=== PATIENT | female | born 1995 | race Caucasian/White ===

== ENCOUNTER 2023-03-07 05:20 | Day surgery (SDC) | payer OTHER ==
[2023-03-02 13:33] VITALS: BMI 22.8
[~2023-03-07 05:20] MED LIST: BUPIVACAINE HCL/PF 0.5% (5 MG/ML) 30 ML VIAL IJ ONE
[2023-03-07] MEDS ORDERED: BUPIVACAINE HCL/PF 0.5% (5MG/ML) 10 ML VIAL ONE (08:45)
[2023-03-07] MEDS ORDERED: MIDAZOLAM HCL 2 MG/2 ML SINGLE DOSE VIAL ONE (10:13)
[2023-03-07] MEDS ORDERED: ceFAZolin SODIUM 1 GM VIAL IVPB ONE (10:50)
[2023-03-07] MEDS ORDERED: BUPIVACAINE HCL/PF 0.5% (5 MG/ML) 30 ML VIAL IJ ONE ×2 (11:11)
[2023-03-07] MEDS ORDERED: NEOSTIGMINE METHYLSULFATE 0.5 MG/1 ML - 10 ML MDV ONE (11:54)
[2023-03-07] MEDS ORDERED: GLYCOPYRROLATE 0.2 MG/1 ML VIAL ONE (11:54)
[2023-03-07] MEDS ORDERED: ONDANSETRON 4 MG/2 ML VIAL IVPUSH PRN (12:28)
[2023-03-07] MEDS ORDERED: PROMETHAZINE HCL 25 MG/1 ML VIAL IVPB PRN (12:28)
[2023-03-07] MEDS ORDERED: oxyCODONE HCL 5 MG TABLET PO PRN (12:28)
[2023-03-07] MEDS ORDERED: LACTATED RINGERS SOLUTION 1,000 ML IV SCH (12:30)
[2023-03-07] MEDS ORDERED: ONDANSETRON 4 MG/2 ML VIAL ONE (14:22)
[2023-03-07] MEDS ORDERED: oxyCODONE HCL 5 MG TABLET ONE (14:23)
[2023-03-07 19:38] VITALS: BP 100/60; PULSE 70; RESP 18; TEMP 97.8
== END 2023-03-07 18:40 | disposition home or self-care (01) ==
LOC: JASU-SURG 05:20
PROVIDERS: ATTEND Obstetrics & Gynecology
PROC: 0UB14ZZ Excision of Left Ovary, Percutaneous Endoscopic Approach (ICD-10-PCS; principal; 2023-03-07 10:00)
DX: D27.1 Benign neoplasm of left ovary (principal); R10.2 Pelvic and perineal pain
CPT/HCPCS: 86850; 86900; 86901; 88307-TC; 88342-TC; 94010; 94760

== ENCOUNTER 2024-04-22 19:30 | Inpatient (IN) | payer OTHER ==
[2024-04-22] MEDS: ELECTROLYTE-148 SOLN 1,000 ML IV SCH (20:20)
[2024-04-22 20:21] VITALS: BMI 27.1
[2024-04-22 20:33] LABS: BASO % 0.7 % (0-2.0); EOS % 0.4 % (0-4.5); HEMOGLOBIN 12.7 GM/dL (10.7-15.3); LYMPH % 24.5 % (8-40); MCH 33.4 pg (25.7-33.7); MCHC 34.3 g/dl (32.0-36.0); MEAN CELL VOLUME 97.4 fl (80-96); MEAN PLT VOLUME 8.4 fl (7.5-11.1); MONO % 8.2 % (3.8-10.2); NEUT % 66.2 % (42.8-82.8); PLATELET COUNT 214 10^3/uL (134-434); RDW 13.7 % (11.6-15.6); WHITE BLOOD COUNT 6.1 K/mm3 (4.0-10.0)
[2024-04-22 20:42] LABS: INR 0.95 (0.83-1.09); PROTHROMBIN TIME (PATIENT) 10.9 SEC (9.7-13.0)
[2024-04-22 20:45] LABS: ACTIVATED PTT 26.9 SECONDS (25.2-36.5)
[2024-04-22 20:50] LABS: POTASSIUM 4.4 mmol/L (3.5-5.1)
[2024-04-22 20:53] LABS: BLOOD UREA NITROGEN 19.6 mg/dL (7-18); CALCIUM 9.1 mg/dL (8.5-10.1)
[2024-04-22 20:55] LABS: CREATININE 0.5 mg/dL (0.55-1.3)
[2024-04-22] MEDS: DINOPROSTONE 10 MG VAGINAL SUPPOSITORY VG ONE (21:50)
[2024-04-23] MEDS ORDERED: PROMETHAZINE HCL 25 MG/1 ML VIAL ONE (05:00)
[2024-04-23] MEDS ORDERED: BUTORPHANOL TARTRATE 2 MG/ML VIAL ONE (05:00)
[2024-04-23] MEDS: PROMETHAZINE HCL 25 MG/1 ML VIAL IVPB ONE (05:10)
[2024-04-23] MEDS: BUTORPHANOL TARTRATE 1 MG/ML VIAL IVPUSH ONE (05:10)
[2024-04-23 08:16] VITALS: RESP 18
[2024-04-23] MEDS ORDERED: FENTANYL/BUPIVACAINE/NS/PF - PCEA - 50 ML DISP.SYRIN EP ONE (08:50)
[2024-04-23] MEDS ORDERED: NALOXONE HCL 0.4 MG/ML VIAL IVPUSH PRN (09:14)
[2024-04-23] MEDS: FENTANYL/BUPIVACAINE/NS/PF - PCEA - 50 ML DISP.SYRIN EP SCH (09:35)
[2024-04-23] MEDS ORDERED: OXYTOCIN 20 UNITS in 0.9% NS 20 UNIT/1,000 ML INFUS.BAG IV ONE (12:14)
[2024-04-23] MEDS ORDERED: LIDOCAINE HCL 1% PRESERVATIVE FREE - 30ML VIAL ONE (12:14)
[2024-04-23] MEDS ORDERED: OXYTOCIN 30 UNITS in 0.9% NS 30 UNIT/500 ML INFUS.BAG IVPB ONE (13:48)
[2024-04-23] MEDS ORDERED: ACETAMINOPHEN 325 MG TABLET (FP) ONE (15:16)
[2024-04-23] MEDS: ACETAMINOPHEN 325 MG TABLET (FP) PO PRN (15:20)
[2024-04-23] MEDS: OXYTOCIN 20 UNITS in 0.9% NS 20 UNIT/1,000 ML INFUS.BAG IV SCH (16:30)
[2024-04-23] MEDS ORDERED: oxyCODONE HCL 5 MG TABLET ONE (16:58)
[2024-04-23] MEDS: oxyCODONE HCL 5 MG TABLET PO PRN (17:00)
[2024-04-23] MEDS ORDERED: BENZOCAINE 28 GM HEMORRHOIDAL OINTMENT TP PRN (17:03)
[2024-04-23] MEDS ORDERED: BISACODYL 10 MG SUPP.RECT RC PRN (17:03)
[2024-04-23] MEDS ORDERED: METHYLERGONOVINE MALEATE 0.2 MG/1 ML AMP IM PRN (17:03)
[2024-04-23] MEDS ORDERED: WITCH HAZEL 50% (TUCKS) 40 PAD/JAR PAD TP PRN (17:03)
[2024-04-23 20:50] LABS: BASO % 0.1 % (0-2.0); HEMATOCRIT 30.9 % (32.4-45.2); HEMOGLOBIN 10.3 GM/dL (10.7-15.3); MCH 32.9 pg (25.7-33.7); MCHC 33.3 g/dl (32.0-36.0); MEAN CELL VOLUME 98.7 fl (80-96); MEAN PLT VOLUME 8.1 fl (7.5-11.1); MONO % 6.6 % (3.8-10.2); NEUT % 88.3 % (42.8-82.8); PLATELET COUNT 182 10^3/uL (134-434); RBC 3.13 M/mm3 (3.60-5.2); RDW 13.7 % (11.6-15.6); WHITE BLOOD COUNT 13.6 K/mm3 (4.0-10.0)
[2024-04-24 07:34] LABS: BASO % 0.2 % (0-2.0); EOS % 0.3 % (0-4.5); HEMATOCRIT 26.1 % (32.4-45.2); HEMOGLOBIN 8.8 GM/dL (10.7-15.3); LYMPH % 11.4 % (8-40); MCH 33.2 pg (25.7-33.7); MCHC 33.8 g/dl (32.0-36.0); MEAN CELL VOLUME 98.4 fl (80-96); MEAN PLT VOLUME 8.1 fl (7.5-11.1); MONO % 7.6 % (3.8-10.2); NEUT % 80.5 % (42.8-82.8); PLATELET COUNT 164 10^3/uL (134-434); RBC 2.65 M/mm3 (3.60-5.2); RDW 13.4 % (11.6-15.6)
[2024-04-24] MEDS: BENZOCAINE 20% 57 GM BOTTLE TP PRN (11:06)
[2024-04-24] MEDS: PRENATAL VITAMINS W/ FOLIC ACID TABLET (FP) PO SCH (11:06)
[2024-04-24] MEDS: SENNOSIDES/DOCUSATE COMBO (SENNA PLUS) TABLET (UD) PO PRN (22:10)
[2024-04-25 10:40] VITALS: BP 113/68; PULSE 82; TEMP 98.2
[2024-04-25] MEDS: IRON SUCROSE INJECTION 200 MG in SODIUM CHLORIDE 100 ML IVPB ONE (14:43)
[2024-04-25] MEDS: POLYETHYLENE GLYCOL (HEALTHYLAX) 3350 17 GM PACKET PO PRN (15:25)
== END 2024-04-25 18:00 | disposition home or self-care (01) | DRG 807 ==
LOC: JLDR 19:30 → J3W 04-23 19:07
PROVIDERS: ADMIT Obstetrics & Gynecology; ATTEND Obstetrics & Gynecology
PROC: 0KQM0ZZ Repair Perineum Muscle, Open Approach (ICD-10-PCS; principal; 2024-04-23)
PROC: 10E0XZZ Delivery of Products of Conception, External Approach (ICD-10-PCS; 2024-04-23)
DX: O48.0 Post-term pregnancy (principal); Z37.0 Single live birth; Z3A.40 40 weeks gestation of pregnancy; O24.420 Gestational diabetes mellitus in childbirth, diet controlled; O70.1 Second degree perineal laceration during delivery; O99.02 Anemia complicating childbirth; D64.9 Anemia, unspecified
CPT/HCPCS: 36415; 59409; 80048; 82962; 85025; 85610; 85730; 86780; 86850; 86900; 86901; J1756